=== PATIENT | female | born 1995 | race Caucasian/White ===

== ENCOUNTER → 2020-11-17 | Outpatient (REF) | payer OTHER ==
[~2020-11-17] MED LIST: IBUP80TA PO; MAPA500T17 PO
== END ==
LOC: M WUC 15:51
PROVIDERS: ATTEND Physician Assistant
DX: N39.0 Urinary tract infection, site not specified (principal)

== ENCOUNTER 2021-06-04 18:33 | Emergency (ER) | payer OTHER ==
[~2021-06-04] VITALS: Ht 157.5 cm; Wt 61.3 kg
--- OUTSIDE RECORDS SUMMARY | 2021-06-04 18:39 | CCD ---
Author Author [facility] Organization [facility] Address Unknown Phone Unavailable Care Team Providers Care Director Of Rehabilitation Name Role Phone Sophia Mcmillan Unavailable Sophia Mcmillan Unavailable RING, K JONNIE PA Unavailable Unavailable RING, K JONNIE PA Unavailable Unavailable RING, K JONNIE PA Unavailable Unavailable RING, K JONNIE PA Unavailable Unavailable RING, K JONNIE PA Unavailable Unavailable RING, K JONNIE PA Unavailable Unavailable RING, K JONNIE PA Unavailable Unavailable RING, K JONNIE PA Unavailable Unavailable RING, K JONNIE PA Unavailable Unavailable RING, K JONNIE PA Unavailable Unavailable RING, K JONNIE PA Unavailable Unavailable RING, K JONNIE PA Unavailable Unavailable RING, K JONNIE PA Unavailable Unavailable RING, K JONNIE PA Unavailable Unavailable RING, K JONNIE PA Unavailable Unavailable RING, K JONNIE PA Unavailable Unavailable RING, K JONNIE PA Unavailable Unavailable RING, K JONNIE PA Unavailable Unavailable RING, K JONNIE PA Unavailable Unavailable RING, K JONNIE PA Unavailable Unavailable RING, K JONNIE PA Unavailable Unavailable RING, K JONNIE HERRERA Unavailable Unavailable RING, K JONNIE PA Unavailable Unavailable Re-disclosure Warning The records that you are about to access may contain information from federally-assisted alcohol or drug abuse programs. If such information is present, then the following federally mandated warning applies: This information has been disclosed to you from records protected by federal confidentiality rules (42 CFR part 2). The federal rules prohibit you from making any further disclosure of this information unless further disclosure is expressly permitted by the written consent of the person to whom it pertains or as otherwise permitted by 42 CFR part 2. A general authorization for the release of medical or other information is NOT sufficient for this purpose. The Federal rules restrict any use of the information to criminally investigate or prosecute any alcohol or drug abuse patient.The records that you are about to access may contain highly sensitive health information, the redisclosure of which is protected by Article 27-F of the [facility] Public Health law. If you continue you may have access to information: Regarding HIV / AIDS; Provided by facilities licensed or operated by the [facility] Office of Mental Health; or Provided by the [facility] Office for People With Developmental Disabilities. If such information is present, then the following [facility] mandated warning applies: This information has been disclosed to you from confidential records which are protected by state law. State law prohibits you from making any further disclosure of this information without the specific written consent of the person to whom it pertains, or as otherwise permitted by law. Any unauthorized further disclosure in violation of state law may result in a fine or fci sentence or both. A general authorization for the release of medical or other information is NOT sufficient authorization for further disc losure. Encounters Encounter Providers Location Date Indications Data Source(s ) Outpatient Attender: Sophia Mcmillan 04/03/2021 10:00:00 AM EDT [facility] Outpatient Attender: JONNIE Mendoza 11/17/2020 09:35:00 AM EDT [facility] ([facility], [facility]) Medications Medication Brand Name Start Date Product Form Dose Route Admi nistrative Instructions Pharmacy Instructions Status Indications Reaction Description Data Source(s) No Active Medications 11/17/2020 12:00:00 AM EDT completed [facility] ([facility]) NITROFURANTOIN, MACROCRYSTALS 25 MG / Ni trofurantoin, Monohydrate 75 MG Oral Capsule [Macrobid] Macrobid 11/17/2020 12:00:00 AM EDT ORAL active MED[facility] ([facility]) Insurance Providers Payer name Policy type / Coverage type Policy ID Covered constitution party ID Covered constitution party's relationship to roca Policy Roca Plan Information [facility] [id number] [facility] [id number] [facility] [id number] [facility] [id number] 2 [id number] [facility] [id number] SF2 [id number] [facility] [id number] 2 [id number] Problems, Conditions, and Diagnoses Code Display Name Description Problem Type Effective Dates Data Source(s) F41.1 Generalized anxiety disorder GENERALIZED ANXIETY DISOR TODD Diagnosis 04/03/2021 10:00:00 AM [facility] F42.8 OTHER OBSESSIVE-COMPULSIVE DISORDER OTHER OBSESS ADRIAN-COMPULSIVE DISORDER Diagnosis 04/03/2021 10:00:00 AM [facility] F43.10 Post-traumatic stress disorder, unspecif ied POST-TRAUMATIC STRESS DISORDER, UNSPECIFIED Diagnosis 04/03/2021 10:00:00 AM [facility] cesar Surgeries/Procedures No Information Results ID Date Data Source [id number] 11/17/2020 11:35:00 AM EDT [facility] ([facility]) Name Value Range Interpretation Code Description Data Miracle rce(s) Supporting Document(s) Bacteria identified in Urine by Culture Laboratory test result [facility] ([facility]) Rx Macrobid Procedure Social History Code Duration Value Status Description Data Source(s ) Smoking 11/17/2020 12:00:00 AM EDT Patient has never smoked co mpleted Patient has never smoked [facility] ([facility]) Vital Signs ID Date Data Source UNK Name Value Range Interpretation Code Description Data Source(s) Body weight 130.00 [lb_av] 130.00 [lb_av] MEDEN T ([facility]) Body height 62 [in_i] 62 [in_i] [facility] ([facility]) 5'2" Systolic blood pressure 138 mm[Hg] 138 mm[Hg] [facility]) Diastolic blood pressure 90 mm[Hg] 90 mm[Hg] [facility] ([facility], [facility]) Heart rate 92 /min 92 /min [facility] ([facility], [facility]) Respiratory rate 15 /min 15 /min [facility] ( [facility], [facility]) Oxygen saturation in Arterial blood by Pulse oximetry 99 % 99 % [facility] ([facility], [facility]) Body temperature 98.3 [degF] 98.3 [degF] [facility] ([facility], [facility]) Body mass index (BMI) [Ratio] 23.8 kg/m2 23.8 k g/m2 [facility] ([facility])
[2021-06-04 18:57] LABS: BASO # 0.1 10^3/uL (0.0-0.2); BASO % 0.4 % (0.0-1.0); EOS # 0.3 10^3/uL (0.0-0.5); EOS % 2.7 % (0.0-3.0); HEMATOCRIT 39.9 % (36.0-47.0); HEMOGLOBIN 12.8 g/dl (12.0-15.5); LYMPH # 2.7 10^3/uL (1.5-5.0); LYMPH % 22.4 % (24.0-44.0); MEAN CORPUSCULAR HEMOGLOBIN 29.3 pg (27.0-33.0); MEAN CORPUSCULAR HGB CONC 32.1 g/dl (32.0-36.5); MEAN CORPUSCULAR VOLUME 91.3 fl (80.0-96.0); MONO # 0.7 10^3/uL (0.0-0.8); MONO % 5.7 % (2.0-8.0); NEUTROPHILS # 8.3 10^3/uL (1.5-8.5); NEUTROPHILS % 68.6 % (36.0-66.0); PLATELET COUNT, AUTOMATED 240 10^3/uL (150-450); RED BLOOD COUNT 4.37 10^6/uL (4.00-5.40)
[2021-06-04 19:27] LABS: BLOOD UREA NITROGEN 14 MG/DL (7-18); CALCIUM LEVEL 8.7 MG/DL (8.5-10.1); CARBON DIOXIDE LEVEL 27 MEQ/L (21-32); CHLORIDE LEVEL 105 MEQ/L (98-107); CREATININE FOR GFR 0.58 MG/DL (0.55-1.30); GLOMERULAR FILTRATION RATE > 60.0 (>60); GLUCOSE, FASTING 93 MG/DL (70-100); HCG, SERUM QUANTITATIVE 607 MIU/ML; POTASSIUM SERUM 3.7 MEQ/L (3.5-5.1); SODIUM LEVEL 138 MEQ/L (136-145)
--- NOTE | 2021-06-04 23:38 | REPVR ---
PROCEDURE INFORMATION: Exam: US Duplex Artery and Vein of the Abdominal and/or Reproductive Organs. Complete Ovaries Exam date and time: 06/04/2021 10:26 PM Age: 26 years old Clinical indication: complicated by abdominal or pelvic pain; Right lower quadrant; First trimester (<14 weeks 0 days); Gestational age or lmp: ? ? Beginning of March; ; Additional info: Rlq pain + test, R/O ectopic TECHNIQUE: Imaging protocol: Real-time duplex ultrasound scan of the arterial and venous flow with color Doppler flow and spectral waveform analysis with image documentation. Complete duplex exam focused on the ovaries. Duplex exam was added to evaluate for torsion and other vascular conditions. COMPARISON: No relevant prior studies available. FINDINGS: Right ovary/adnexa: The arterial and venous color Doppler flow and spectral waveforms within the right ovary are within normal limits, without evidence for right ovarian torsion. Left ovary/adnexa: The arterial and venous color Doppler flow and spectral waveforms within the left ovary are within normal limits, without evidence for left ovarian torsion. IMPRESSION: No evidence for ovarian torsion. PROCEDURE INFORMATION: Exam: US First Trimester, Transabdominal and US , Transvaginal Exam date and time: 06/04/2021 10:26 PM Age: 26 years old Clinical indication: complicated by abdominal or pelvic pain; Right lower quadrant; First trimester (<14 weeks 0 days); Gestational age or lmp: ? ? Beginning of March; ; Additional info: Rlq pain + test, R/O ectopic TECHNIQUE: Imaging protocol: Real-time transabdominal obstetrical ultrasound of the maternal pelvis and a first trimester , less than 14 weeks 0 days, with image documentation. Transvaginal imaging was used for better evaluation of the fetus, adnexa, and/or cervix. COMPARISON: No relevant prior studies available. FINDINGS: Beta HC mIU/mL Gestation: No intrauterine or extrauterine is identified. No gestational sac, pole, or yolk sac is visualized. Embryonic/ heart rate: No cardiac activity is visualized. Extra-embryonic membranes/Placenta: No placenta is visualized. Amniotic fluid: No amniotic fluid is visualized. MATERNAL: Uterus: The anteverted uterus measures 9.3 cm x 5.3 cm x 6.9 cm. No myometrial mass is noted. The endometrium is normal in appearance and measures 9 mm in thickness. Cervix: Unremarkable. Right ovary/adnexa: The right ovary measures 2.4 cm x 2.1 cm x 2.7 cm and is normal. No right ovarian cyst or tubal mass is noted. Left ovary/adnexa: The left ovary measures 4 cm x 2.5 cm x 3.2 cm and contains a 1.8 cm x 1.8 cm x 1.7 cm cystic lesion with lace-like internal echoes, which likely represents a hemorrhagic cyst. Intraperitoneal space: There is a small amount of free fluid in the cul-de-sac. Urinary bladder: The distended urinary bladder is unremarkable. IMPRESSION: 1. No intrauterine or extrauterine identified in the pelvis. Differential diagnostic considerations include a spontaneous complete , an early normal or abnormal , and an ectopic . Follow-up serial beta hCG levels and a repeat obstetrical ultrasound when beta hCG levels reach greater than 2,000 mIU/mL or as clinically indicated are suggested. 2. 1.8 cm x 1.8 cm x 1.7 cm cystic lesion with lace-like internal echoes in the left ovary, which likely represents a hemorrhagic left ovarian cyst. 3. Small amount of free fluid in the cul-de-sac. Electronically signed by: Julian Norris On 06/04/2021 23:38:07 PM
--- OUTSIDE RECORDS SUMMARY | 2021-06-05 02:30 | CCD ---
Author Author [facility] Organization [facility] Address Unknown Phone Unavailable Care Team Providers Care Race And Sports Book Writer Name Role Phone Sophia Mcmillan Unavailable Sophia [...] is protected by Article 27-F of the [facility] Public Health law. If you continue you may have access to information: Regarding HIV / AIDS; Provided by facilities licensed or operated by the [facility] Office of Mental Health; or Provided by the [facility] Office for People With Developmental Disabilities. If such information is present, then the following [facility] mandated warning applies: This information has been [...] law may result in a fine or [place] health [place] sentence or both. A general authorization for the release of medical or other information is NOT sufficient authorization for further disc losure. Encounters Encounter Providers Location Date Indications Data Source(s ) Outpatient Attender: Sophia Mcmillan 04/03/2021 10:00:00 AM EDT [facility] Outpatient Attender: JONNIE Mendoza 11/17/2020 09:35:00 AM EDT [facility] ([facility], [facility]) Medications Medication Brand Name Start Date Product Form Dose Route Admi nistrative Instructions Pharmacy Instructions Status Indications Reaction Description Data Source(s) No Active Medications 11/17/2020 12:00:00 AM EDT completed [facility] ([facility]) NITROFURANTOIN, MACROCRYSTALS 25 MG / Ni trofurantoin, Monohydrate 75 MG Oral Capsule [Macrobid] Macrobid 11/17/2020 12:00:00 AM EDT ORAL active [facility] ([facility]) Insurance Providers Payer name Policy type / Coverage type Policy ID Covered alliance party ID Covered alliance party's relationship to roca Policy Roca Plan Information [facility] [id number] [place] [id number] [facility] [id number] [facility] [id number] [facility] [id number] 2 [id number] [facility] [id number] SF2 [id number] [facility] [id number] 2 [id number] Problems, Conditions, and Diagnoses Code Display Name Description Problem Type Effective Dates Data Source(s) F41.1 Generalized anxiety disorder GENERALIZED ANXIETY DISOR TODD Diagnosis 04/03/2021 10:00:00 AM [facility] F42.8 OTHER OBSESSIVE-COMPULSIVE DISORDER OTHER OBSESS ADRIAN-COMPULSIVE DISORDER Diagnosis 04/03/2021 10:00:00 AM [facility] F43.10 Post-traumatic stress disorder, unspecif ied POST-TRAUMATIC STRESS DISORDER, UNSPECIFIED Diagnosis 04/03/2021 10:00:00 AM [facility] cesar Surgeries/Procedures No Information Results ID Date Data Source [id number] 11/17/2020 11:35:00 AM EDT [facility] ([facility]) Name Value Range Interpretation Code Description Data Miracle rce(s) Supporting Document(s) Bacteria identified in Urine by Culture Laboratory test result [facility] ([facility]) Rx Macrobid Procedure Social History Code Duration Value Status Description Data Source(s ) Smoking 11/17/2020 12:00:00 AM EDT Patient has never smoked co mpleted Patient has never smoked [facility] ([facility]) Vital Signs ID Date Data Source UNK Name Value Range Interpretation Code Description Data Source(s) Body weight 130.00 [lb_av] 130.00 [lb_av] MEDEN T ([facility]) Body height 62 [in_i] 62 [in_i] [facility] ([facility]) 5'2" Systolic blood pressure 138 mm[Hg] 138 mm[Hg[facility]) Diastolic blood pressure 90 mm[Hg] 90 mm[Hg] [facility] ([facility], [facility]) Heart rate 92 /min 92 /min [facility] ([facility], [facility]) Respiratory rate 15 /min 15 /min [facility] ( [facility], [facility]) Oxygen saturation in Arterial blood by Pulse oximetry 99 % 99 % [facility] ([facility], [facility]) Body temperature 98.3 [degF] 98.3 [degF] [facility] ([facility], [facility]) Body mass index (BMI) [Ratio] 23.8 kg/m2 23.8 k g/m2 [facility] ([facility])
[2021-06-05 03:43] VITALS: BP 112/68
== END 2021-06-05 03:45 | disposition home or self-care (01) ==
LOC: M ED 18:33
DX: O34.81 Maternal care for other abnormalities of pelvic organs, first trimester (principal); N83.202 Unspecified ovarian cyst, left side; N85.4 Malposition of uterus; Z88.0 Allergy status to penicillin; Z3A.00 Weeks of gestation of pregnancy not specified

== ENCOUNTER 2021-06-14 16:57 | Day surgery (SDC) | payer OTHER ==
[~2021-06-14] VITALS: Ht 157.5 cm; Wt 62.2 kg
[~2021-06-14 16:57] MED LIST changes: -ACET-683 PO; -OXYC-517 PO
[2021-06-14] MEDS ORDERED: BUPIVACAINE HCL 0.25% 30ML VIAL As Ordered ONE (17:29)
[2021-06-14] MEDS ORDERED: ONDANSETRON 4MG/2ML VIAL As Ordered ONE (17:54)
[2021-06-14] MEDS ORDERED: ACETAMINOPHEN 1000MG 100ML IV BTL (OFIRMEV) (J0131 PER 10MG) As Ordered ONE (17:54)
[2021-06-14] MEDS ORDERED: fentaNYL 100 MCG/2 ML INJECTION As Ordered ONE ×2 (17:54→21:06)
[2021-06-14] MEDS ORDERED: MIDAZOLAM INJ 2MG/2ML VIAL (J2250 PER 1MG) As Ordered ONE (17:54)
[2021-06-14] MEDS ORDERED: dexameTHASONE 4 MG/ML 1ML VIAL (J1100 PER 1MG) As Ordered ONE (17:54)
[2021-06-14] MEDS ORDERED: SUGAMMADEX SODIUM 500 MG/5 ML VIAL (BRIDION) As Ordered ONE (17:54)
[2021-06-14] MEDS ORDERED: KETOROLAC 60MG 2ML VIAL As Ordered ONE (17:54)
[2021-06-14] MEDS ORDERED: ROCURONIUM BROMIDE 50 MG/5 ML VIAL As Ordered ONE (17:54)
[2021-06-14] MEDS ORDERED: LIDOCAINE 2% 100MG/5ML SDV (FOR ANES.) As Ordered ONE (17:54)
[2021-06-14] MEDS ORDERED: propofoL 200 MG/20 ML VIAL As Ordered ONE (17:54)
[2021-06-14 18:10] VITALS: BP 128/86
[2021-06-14] MEDS: fentaNYL 100 MCG/2 ML INJECTION IV PRN ×2 (21:08→21:13)
[2021-06-14] MEDS ORDERED: MEPERIDINE INJ 25 MG/ML VIAL (J2175) As Ordered ONE (21:11)
[2021-06-14] MEDS: MEPERIDINE INJ 25 MG/ML VIAL (J2175) IV PRN ×2 (21:14→21:19)
[2021-06-14] MEDS ORDERED: HYDROMORPHONE HCL 0.5 MG/ 0.5 ML SYRINGE (J1170 PER 1) IV PRN (21:35)
[2021-06-14] MEDS ORDERED: LR 1,000 ML IV SCH ×2 (21:35→21:40)
[2021-06-14] MEDS ORDERED: oxyCODONE 5MG TAB PO PRN ×2 (21:35→21:40)
[2021-06-14] MEDS ORDERED: ONDANSETRON 4MG/2ML VIAL IV PRN (21:35)
[2021-06-14 22:22] VITALS: BP 103/66
[2021-06-15] VITALS: BP 99/63
[2021-06-15] MEDS ORDERED: ACETAMINOPHEN 500 MG TAB As Ordered ONE (02:37)
[2021-06-15] MEDS: ACETAMINOPHEN 500 MG TAB PO SCH ×2 (02:48→08:30)
[2021-06-15] MEDS ORDERED: IBUPROFEN 800 MG TAB PO SCH (05:00)
[2021-06-15] MEDS ORDERED: IBUP80TA PO (06:18)
[2021-06-15] MEDS ORDERED: ACET-683 PO (06:18)
[2021-06-15] MEDS ORDERED: OXYC-517 PO (06:18)
[2021-06-15 06:40] VITALS: BP 98/65
== END 2021-06-15 11:05 | disposition home or self-care (01) ==
LOC: M SDC 16:57 → M MS5PR 17:40 → M SDC 06-15 11:05
PROVIDERS: ATTEND Obstetrics & Gynecology
DX: O00.90 Unspecified ectopic pregnancy without intrauterine pregnancy (principal)
CPT/HCPCS: 59120; 76801; 76817; 88305; J0131; J1100; J1885; J2175; J2250; J2405; J3010; U0002

== ENCOUNTER → 2021-06-14 | Outpatient (CLI) | payer OTHER ==
[~2021-06-14] MED LIST changes: +ACET-683 PO; +OXYC-517 PO
--- NOTE | 2021-06-15 00:06 | REP ---
INDICATION: 9 WKS 6 DAYS PREG, UTERUS PAIN ON THE RIGHT SIDE COMPARISON: 06/04/2021 TECHNIQUE: Transabdominal and transvaginal early obstetrical ultrasound with color Doppler evaluation. FINDINGS: Anteverted retroflexed uterus measures approximately 10.7 x 4.0 x 5.7 cm. The endometrial complex measures greater than 13 mm and demonstrates decidual reaction without evidence for intrauterine . Left ovary measures 2.9 x 2.6 x 2.5 cm (RI 0.49) and includes 1.9 x 2.3 x 2.0 cm round solid lesion with central small cystic component which may represent corpus luteum. Right ovary measures 2.8 x 1.9 x 1.6 cm (RI 0.47). There is a rounded predominately solid right adnexal mass measuring 2.5 cm diameter with central 9 mm cystic component, but no significant surrounding hyperemia. Finding is nonspecific. No significant pelvic fluid identified. IMPRESSION: 1. Enlarged uterus with decidual reaction but no intrauterine . 2. Complex solid lesion in the left ovary with central cystic component as well as similar appearing solid lesion with central cystic component in the right adnexa separate from the right ovary. These structures are nonspecific and cannot be further delineated by ultrasound. Given the fact there is no intrauterine , correlation with serial HCG levels is recommended. Ectopic cannot definitively be excluded. <Electronically signed by Frank Baker > 06/14/21 [id number]
== END ==
LOC: M WHC 13:05
PROVIDERS: ATTEND Obstetrics & Gynecology
DX: O26.891 Other specified pregnancy related conditions, first trimester (principal); R10.9 Unspecified abdominal pain; N85.2 Hypertrophy of uterus; O34.81 Maternal care for other abnormalities of pelvic organs, first trimester; Z3A.09 9 weeks gestation of pregnancy

== ENCOUNTER 2022-06-02 20:21 | Emergency (ER) | payer OTHER ==
[~2022-06-02] VITALS: Ht 157.5 cm; Wt 63.6 kg
[~2022-06-02 20:21] MED LIST changes: +ACET-683 PO; +OXYC-517 PO
[2022-06-02 21:25] LABS: BASO % 0.3 % (0.0-1.0); EOS # 0.2 10^3/uL (0.0-0.5); EOS % 1.8 % (0.0-3.0); HEMATOCRIT 40.3 % (36.0-47.0); LYMPH % 25.5 % (24.0-44.0); MEAN CORPUSCULAR HEMOGLOBIN 28.9 pg (27.0-33.0); MEAN CORPUSCULAR HGB CONC 32.3 g/dl (32.0-36.5); MEAN CORPUSCULAR VOLUME 89.6 fl (80.0-96.0); MONO # 0.8 10^3/uL (0.0-0.8); MONO % 6.4 % (2.0-8.0); NEUTROPHILS # 7.7 10^3/uL (1.5-8.5); NEUTROPHILS % 65.7 % (36.0-66.0); PLATELET COUNT, AUTOMATED 314 10^3/uL (150-450); WHITE BLOOD COUNT 11.7 10^3/uL (4.0-10.0)
[2022-06-02 21:50] LABS: HCG, SERUM QUANTITATIVE 33.8 MIU/ML (<4.2)
[2022-06-02 21:53] LABS: BLOOD UREA NITROGEN 15 MG/DL (9-23); CALCIUM LEVEL 9.5 MG/DL (8.5-10.1); CARBON DIOXIDE LEVEL 27 MMOL/L (20-31); CHLORIDE LEVEL 103 MMOL/L (98-107); CREATININE FOR GFR 0.69 MG/DL (0.55-1.30); GLOMERULAR FILTRATION RATE > 60.0 (>60); GLUCOSE, FASTING 89 MG/DL (60-100); POTASSIUM SERUM 4.3 MMOL/L (3.5-5.1); SODIUM LEVEL 139 MMOL/L (136-145)
[2022-06-03 00:58] VITALS: BP 116/80
== END 2022-06-03 00:59 | disposition home or self-care (01) ==
LOC: M ED 20:21
DX: O26.899 Other specified pregnancy related conditions, unspecified trimester (principal); N83.02 Follicular cyst of left ovary; Z87.42 Personal history of other diseases of the female genital tract; Z88.0 Allergy status to penicillin; Z3A.01 Less than 8 weeks gestation of pregnancy

== ENCOUNTER → 2022-06-04 | Outpatient (CLI) | payer OTHER | LOC: M RAD 11:38 | PROVIDERS: ATTEND Physician Assistant | DX: R10.32 Left lower quadrant pain (principal) ==